=== PATIENT | male | born 1950 | race Caucasian/White ===

== ENCOUNTER 2017-08-30 23:59 | Emergency (ER) | payer OTHER ==
[~2017-08-30] VITALS: Ht 180.3 cm; Wt 95.0 kg
[2017-08-31 11:03] VITALS: BP 118/55
== END 2017-08-31 11:04 ==
LOC: EDBD 23:59 → EME 23:59
PROC: 0D20XUZ Change Feeding Device in Upper Intestinal Tract, External Approach (ICD-10-PCS; principal; 2017-08-30)
DX: K94.23 Gastrostomy malfunction (principal)
CPT/HCPCS: 74018; 76000; 99281; 99285; J1630; J2060

== ENCOUNTER 2017-09-03 17:37 | Inpatient (IN) | payer OTHER ==
[~2017-09-03] VITALS: Ht 177.8 cm; Wt 106.0 kg
[2017-09-03 18:37] LABS: BASOPHIL (%) 0.9 % (0-1); BASOPHIL COUNT 0.1 K/uL (0-0.1); EOSINOPHIL (%) 4.8 % (0-5); EOSINOPHIL COUNT 0.6 K/uL (0-0.3); HEMATOCRIT 30.6 % (38.0-50.0); HEMOGLOBIN 9.9 G/DL (12.5-16.6); IMMATURE GRANULOCYTE (%) 1.7 % (0.0-0.7); LYMPHOCYTE (%) 9.9 % (15-42); LYMPHOCYTE COUNT 1.2 K/uL (1.0-2.8); MCH 28.9 PG (29.0-34.0); MCHC 32.4 G/DL (30.0-36.0); MCV 89.2 FL (86-99); MONOCYTE (%) 12.4 % (3-12); MONOCYTE COUNT 1.5 K/uL (0-0.8); NEUTROPHIL (%) 70.3 % (45-76); NEUTROPHIL COUNT 8.3 K/uL (1.8-6.4); PLATELET COUNT 359 K/uL (156-360); RBC DIS.WIDTH-CV 17.2 % (11.8-14.6); RBC DIS.WIDTH-SD 56.3 % (39-53); RED BLOOD COUNT 3.43 M/uL (4.00-5.50); WHITE BLOOD COUNT 11.8 K/uL (4.1-10.2)
[2017-09-03 18:49] LABS: ALBUMIN 3.1 g/dL (3.2-4.8); CHLORIDE 106 mEq/L (99-109); POTASSIUM 4.6 mEq/L (3.7-5.4); SODIUM 138 mEq/L (136-147)
[2017-09-03 18:51] LABS: GLUCOSE 129 mg/dL (70-99); TOTAL PROTEIN 7.4 g/dL (6.4-8.3)
[2017-09-03 18:53] LABS: TOTAL BILIRUBIN 0.3 mg/dL (0.0-1.0)
[2017-09-03 18:55] LABS: ALKALINE PHOSPHATASE 73 IU/L (3-129); GFR ESTIMATE (CALCULATED) 36 mL/min/ (58.99-99999)
[2017-09-03 18:56] LABS: UREA NITROGEN (BUN) 27 mg/dL (9-23)
[2017-09-03 18:57] LABS: AST (GOT) 21 IU/L (2-34)
[2017-09-03 18:58] LABS: ALT (GPT) 17 IU/L (3-49)
[2017-09-03 18:59] LABS: TROP-I INTERPRETATION NEGATIVE; TROPONIN-I < 0.01 ng/mL (0.0-0.30)
[2017-09-03 19:42] LABS: APPEARANCE SL.HAZY ((CLEAR)); BILIRUBIN NEGATIVE; BLOOD NEGATIVE; COLOR YELLOW ((YELLOW)); GLUCOSE (STRIP) 50; KETONES NEGATIVE; LEUKOCYTES NEGATIVE; NITRITE NEGATIVE; PROTEIN (STRIP) 100; SPECIFIC GRAVITY 1.014 (1.000-1.030); UROBILINOGEN 0.2 MG/DL (0.2-1.0)
[2017-09-03 19:52] LABS: BACTERIA RARE /HPF; EPITHELIAL CELLS RARE /HPF; HYALINE CASTS 0-5 /LPF; MUCUS TRACE /LPF; RED BLOOD CELLS 0-5 /HPF (0-5); UCUL ADDED? YES
[2017-09-04] MEDS ORDERED: CERTAVITE WITH1 EAC1 GT (03:25)
[2017-09-04] MEDS ORDERED: CIPRO I.V.400 MG/200 IV (03:26)
[2017-09-04] MEDS ORDERED: LABETALOL HCL100 MG GT (03:27)
[2017-09-04] MEDS ORDERED: ACID CONTROLLER20 MG GT (03:27)
[2017-09-04] MEDS ORDERED: VITAMIN D31000 UNI1 GT (03:28)
[2017-09-04] MEDS ORDERED: EFFEXOR75 MG GT (03:29)
[2017-09-04] MEDS ORDERED: NOVOLOG 10100 UNITS/ SQ (03:30)
[2017-09-04] MEDS ORDERED: DIFLUCAN200 MG/100 IV (03:31)
[2017-09-04] MEDS ORDERED: RISPERDAL2 MG GT (03:32)
[2017-09-04] MEDS ORDERED: TOBRAMYCIN40 MG/1 M1 IV (03:33)
[2017-09-04] MEDS ORDERED: LOVENOX30 MG/0.3 SQ (03:36)
[2017-09-04] MEDS ORDERED: XANAX0.25 MG GT (03:37)
[2017-09-04] MEDS ORDERED: RISPERDAL3 MG GT (03:44)
[2017-09-04] MEDS ORDERED: HALDOL5 MG GT (03:46)
[2017-09-04] MEDS ORDERED: TYLENOL REGULA325 MG GT (03:48)
[2017-09-04] MEDS ORDERED: ROXICODONE5 MG GT (03:48)
[2017-09-04 06:24] LABS: BASOPHIL (%) 1.1 % (0-1); BASOPHIL COUNT 0.1 K/uL (0-0.1); EOSINOPHIL (%) 4.6 % (0-5); EOSINOPHIL COUNT 0.5 K/uL (0-0.3); HEMATOCRIT 31.3 % (38.0-50.0); HEMOGLOBIN 9.7 G/DL (12.5-16.6); IMMATURE GRANULOCYTE (%) 1.9 % (0.0-0.7); LYMPHOCYTE (%) 10.6 % (15-42); LYMPHOCYTE COUNT 1.1 K/uL (1.0-2.8); MCH 28.1 PG (29.0-34.0); MCV 90.7 FL (86-99); MONOCYTE (%) 12.3 % (3-12); MONOCYTE COUNT 1.3 K/uL (0-0.8); NEUTROPHIL (%) 69.5 % (45-76); NEUTROPHIL COUNT 7.5 K/uL (1.8-6.4); PLATELET COUNT 355 K/uL (156-360); RBC DIS.WIDTH-CV 17.1 % (11.8-14.6); RBC DIS.WIDTH-SD 56.8 % (39-53); RED BLOOD COUNT 3.45 M/uL (4.00-5.50); WHITE BLOOD COUNT 10.8 K/uL (4.1-10.2)
[2017-09-04 06:27] VITALS: BP 138/67
[2017-09-04 06:48] LABS: CHLORIDE 106 MEQ/L (99-109); GFR ESTIMATE (CALCULATED) 36 mL/min/ (58.99-99999); GLUCOSE 121 mg/dL (70-99); POTASSIUM 4.4 MEQ/L (3.7-5.4); SODIUM 140 MEQ/L (136-147); TOBRAMYCIN (TROUGH) 1.2 MCG/ML (0-1.0); UREA NITROGEN (BUN) 27 mg/dL (9-23)
[2017-09-04 06:49] LABS: INTACT PARATHYROID HORMONE 8 pg/mL (10-69)
[2017-09-04 07:59] VITALS: BP 140/75
[2017-09-04 11:55] VITALS: BP 115/59
[2017-09-04] MEDS ORDERED: CERTAVITE WITH1 EAC1 ET (13:53)
[2017-09-04] MEDS ORDERED: OXYCODONE HCL5 MG PO (14:48)
[2017-09-04 17:04] VITALS: BP 151/72
[2017-09-05 00:01] VITALS: BP 140/72
[2017-09-05 04:01] VITALS: BP 128/67
[2017-09-05 06:35] LABS: HEMATOCRIT 31.6 % (38.0-50.0); HEMOGLOBIN 9.7 G/DL (12.5-16.6); MCH 27.9 PG (29.0-34.0); MCHC 30.7 G/DL (30.0-36.0); MCV 90.8 FL (86-99); PLATELET COUNT 336 K/uL (156-360); RBC DIS.WIDTH-CV 16.9 % (11.8-14.6); RBC DIS.WIDTH-SD 56.6 % (39-53); RED BLOOD COUNT 3.48 M/uL (4.00-5.50); WHITE BLOOD COUNT 10.9 K/uL (4.1-10.2)
[2017-09-05 07:12] LABS: ALBUMIN 2.9 G/DL (3.2-4.8); ALKALINE PHOSPHATASE 66 IU/L (3-129); ALT (GPT) 16 IU/L (3-49); AST (GOT) 24 IU/L (2-34); CHLORIDE 106 MEQ/L (99-109); CREATININE 1.8 MG/DL (0.6-1.3); GFR ESTIMATE (CALCULATED) 40 mL/min/ (58.99-99999); GLUCOSE 139 mg/dL (70-99); POTASSIUM 3.9 MEQ/L (3.7-5.4); SODIUM 140 MEQ/L (136-147); TOTAL BILIRUBIN 0.4 MG/DL (0.0-1.0); TOTAL PROTEIN 6.5 G/DL (6.4-8.3); UREA NITROGEN (BUN) 27 mg/dL (9-23)
[2017-09-05 07:13] LABS: TOBRAMYCIN (TROUGH) < 0.6 MCG/ML (0-1.0)
[2017-09-05 12:03] VITALS: BP 139/88
[2017-09-05 19:45] VITALS: BP 108/58
[2017-09-06 03:11] VITALS: BP 106/58
[2017-09-06 07:12] VITALS: BP 151/80
[2017-09-06 11:44] VITALS: BP 133/63
[2017-09-06 16:17] VITALS: BP 108/60
[2017-09-06 20:20] VITALS: BP 140/84
[2017-09-07] VITALS (7 sets, daily range): BP systolic 109–133; BP diastolic 55–85
[2017-09-08 04:15] VITALS: BP 136/60
[2017-09-08 08:01] VITALS: BP 126/81
[2017-09-08 12:33] VITALS: BP 133/64
[2017-09-08 16:12] VITALS: BP 146/70
[2017-09-08 19:31] VITALS: BP 135/70
[2017-09-09 03:26] VITALS: BP 133/70
[2017-09-09 07:31] VITALS: BP 130/62
[2017-09-09 12:05] VITALS: BP 114/55
[2017-09-09 15:13] VITALS: BP 130/63
[2017-09-09 19:42] VITALS: BP 120/70
[2017-09-10] VITALS (7 sets, daily range): BP systolic 112–136; BP diastolic 59–81
[2017-09-10 08:00] LABS: BASOPHIL (%) 0.9 % (0-1); BASOPHIL COUNT 0.1 K/uL (0-0.1); EOSINOPHIL (%) 5.3 % (0-5); EOSINOPHIL COUNT 0.6 K/uL (0-0.3); HEMOGLOBIN 8.8 G/DL (12.5-16.6); IMMATURE GRANULOCYTE (%) 2.4 % (0.0-0.7); LYMPHOCYTE (%) 9.7 % (15-42); LYMPHOCYTE COUNT 1.1 K/uL (1.0-2.8); MCH 28.3 PG (29.0-34.0); MCHC 30.3 G/DL (30.0-36.0); MCV 93.2 FL (86-99); MONOCYTE (%) 12.3 % (3-12); MONOCYTE COUNT 1.4 K/uL (0-0.8); NEUTROPHIL (%) 69.4 % (45-76); NEUTROPHIL COUNT 7.6 K/uL (1.8-6.4); PLATELET COUNT 250 K/uL (156-360); RBC DIS.WIDTH-SD 55.3 % (39-53); RED BLOOD COUNT 3.11 M/uL (4.00-5.50)
[2017-09-10 08:34] LABS: ALBUMIN 2.7 G/DL (3.2-4.8); ALKALINE PHOSPHATASE 67 IU/L (3-129); ALT (GPT) 12 IU/L (3-49); AST (GOT) 14 IU/L (2-34); CHLORIDE 104 MEQ/L (99-109); CREATININE 1.4 MG/DL (0.6-1.3); DIRECT BILIRUBIN 0.1 mg/dL (0.0-0.3); GFR ESTIMATE (CALCULATED) 54 mL/min/ (58.99-99999); GLUCOSE 204 mg/dL (70-99); POTASSIUM 4.1 MEQ/L (3.7-5.4); SODIUM 138 MEQ/L (136-147); UREA NITROGEN (BUN) 25 mg/dL (9-23)
[2017-09-10 08:35] LABS: TOTAL BILIRUBIN 0.3 MG/DL (0.0-1.0)
[2017-09-11 04:33] VITALS: BP 100/62
[2017-09-11 08:10] VITALS: BP 122/64
[2017-09-11 13:21] VITALS: BP 143/71
[2017-09-11 16:59] VITALS: BP 95/52
[2017-09-11 19:20] VITALS: BP 130/60
[2017-09-11 23:33] VITALS: BP 165/79
[2017-09-12 03:55] VITALS: BP 133/67
[2017-09-12 07:59] VITALS: BP 133/67
[2017-09-12 11:46] VITALS: BP 124/72
[2017-09-12 16:00] VITALS: BP 126/66
[2017-09-13 05:24] VITALS: BP 143/61
[2017-09-13 08:28] VITALS: BP 126/62
[2017-09-13 11:31] VITALS: BP 126/63
[2017-09-13 11:34] LABS: BASOPHIL COUNT 0.1 K/uL (0-0.1); EOSINOPHIL (%) 3.4 % (0-5); EOSINOPHIL COUNT 0.5 K/uL (0-0.3); HEMOGLOBIN 9.9 G/DL (12.5-16.6); IMMATURE GRANULOCYTE (%) 4.5 % (0.0-0.7); LYMPHOCYTE (%) 7.5 % (15-42); MCH 27.8 PG (29.0-34.0); MCHC 30.9 G/DL (30.0-36.0); MCV 89.9 FL (86-99); MONOCYTE (%) 9.7 % (3-12); MONOCYTE COUNT 1.3 K/uL (0-0.8); NEUTROPHIL (%) 73.9 % (45-76); NEUTROPHIL COUNT 9.7 K/uL (1.8-6.4); RBC DIS.WIDTH-CV 15.4 % (11.8-14.6); RBC DIS.WIDTH-SD 51.1 % (39-53); RED BLOOD COUNT 3.56 M/uL (4.00-5.50); WHITE BLOOD COUNT 13.1 K/uL (4.1-10.2)
[2017-09-13 11:37] LABS: PLATELET COUNT 334 K/uL (156-360)
[2017-09-13 11:56] LABS: CHLORIDE 105 MEQ/L (99-109); CREATININE 1.3 MG/DL (0.6-1.3); GFR ESTIMATE (CALCULATED) 59 mL/min/ (58.99-99999); GLUCOSE 137 mg/dL (70-99); POTASSIUM 3.9 MEQ/L (3.7-5.4); SODIUM 140 MEQ/L (136-147); UREA NITROGEN (BUN) 20 mg/dL (9-23)
[2017-09-13 15:47] VITALS: BP 128/65
[2017-09-13 20:23] VITALS: BP 130/72
[2017-09-14 00:07] VITALS: BP 137/64
[2017-09-14 04:44] VITALS: BP 125/62
[2017-09-14 07:39] VITALS: BP 135/66
[2017-09-14 11:19] VITALS: BP 127/59
[2017-09-14 15:46] VITALS: BP 130/80
[2017-09-14 20:39] VITALS: BP 130/66
[2017-09-15 04:39] VITALS: BP 130/80
[2017-09-15 11:52] VITALS: BP 130/68
[2017-09-15 16:02] VITALS: BP 132/69
[2017-09-15 19:48] VITALS: BP 130/68
[2017-09-16] VITALS: BP 132/68
[2017-09-16 04:17] VITALS: BP 132/68
[2017-09-16 08:16] VITALS: BP 152/72
[2017-09-16 13:25] VITALS: BP 154/67
[2017-09-16 17:49] VITALS: BP 142/79
[2017-09-16 20:07] VITALS: BP 142/65
[2017-09-17 00:45] VITALS: BP 140/83
[2017-09-17 03:49] VITALS: BP 133/70
[2017-09-17 05:43] LABS: HEMATOCRIT 29.7 % (38.0-50.0); HEMOGLOBIN 9.3 G/DL (12.5-16.6); MCH 28.2 PG (29.0-34.0); MCHC 31.3 G/DL (30.0-36.0); PLATELET COUNT 345 K/uL (156-360); RBC DIS.WIDTH-CV 15.4 % (11.8-14.6); RBC DIS.WIDTH-SD 51.1 % (39-53); WHITE BLOOD COUNT 13.5 K/uL (4.1-10.2)
[2017-09-17 06:06] LABS: CHLORIDE 106 MEQ/L (99-109); CREATININE 1.1 MG/DL (0.6-1.3); GFR ESTIMATE (CALCULATED) > 59 mL/min/ (58.99-99999); GLUCOSE 158 mg/dL (70-99); POTASSIUM 4.3 MEQ/L (3.7-5.4); SODIUM 140 MEQ/L (136-147); UREA NITROGEN (BUN) 27 mg/dL (9-23)
[2017-09-17 08:55] VITALS: BP 120/70
[2017-09-17 09:29] LABS: IMM.RETIC FRACTION 30.5 % (3-19); RETIC HGB EQUIVALENT 28.1 (28-36); RETICULOCYTE COUNT 2.5 % (0.5-1.8)
[2017-09-17 10:59] LABS: FERRITIN 436 NG/ML (22-322); IRON 25 MCG/DL (35-150); TRANSFERRIN (TIBC) 156.6 mg/dL (215-380); TRANSFERRIN SATUR. 16 % (20-55)
[2017-09-17 11:05] LABS: FOLIC ACID (FOLATE) 8.9 NG/ML (5.0-22.0)
[2017-09-17 11:53] VITALS: BP 120/74
[2017-09-17 20:58] VITALS: BP 133/70
[2017-09-18 05:27] LABS: HEMATOCRIT 31.6 % (38.0-50.0); HEMOGLOBIN 9.9 G/DL (12.5-16.6); MCH 28.2 PG (29.0-34.0); MCHC 31.3 G/DL (30.0-36.0); PLATELET COUNT 383 K/uL (156-360); RBC DIS.WIDTH-CV 15.5 % (11.8-14.6); RBC DIS.WIDTH-SD 50.8 % (39-53); RED BLOOD COUNT 3.51 M/uL (4.00-5.50); WHITE BLOOD COUNT 14.6 K/uL (4.1-10.2)
[2017-09-18 05:50] LABS: ABS NEUTROPHIL COUNT 10.6; BAND NEUTROPHILS 1.7 % (0-8.0); BURR CELLS 2+; EOSINOPHIL ABS CT 0.6; EOSINOPHILS 4.4 % (0-5.0); LYMPHOCYTES 7.9 % (15.0-45.0); MONOCYTES 9.6 % (0-9.0); MYELOCYTES 5.3 %; PLAT.SUFFICIENCY ADEQUATE; POLYCHROMASIA 1+; SEG.NEUTROPHILS 71.1 % (46.0-76.0)
[2017-09-18 05:51] LABS: ALBUMIN 2.7 G/DL (3.2-4.8); ALKALINE PHOSPHATASE 84 IU/L (3-129); ALT (GPT) 18 IU/L (3-49); AST (GOT) 20 IU/L (2-34); CHLORIDE 102 MEQ/L (99-109); CREATININE 1.1 MG/DL (0.6-1.3); GFR ESTIMATE (CALCULATED) > 59 mL/min/ (58.99-99999); GLUCOSE 147 mg/dL (70-99); POTASSIUM 4.8 MEQ/L (3.7-5.4); SODIUM 139 MEQ/L (136-147); TOTAL BILIRUBIN 0.3 MG/DL (0.0-1.0); TOTAL PROTEIN 6.4 G/DL (6.4-8.3); UREA NITROGEN (BUN) 27 mg/dL (9-23)
[2017-09-18 08:34] VITALS: BP 149/71
[2017-09-18 12:19] VITALS: BP 124/68
[2017-09-18 17:48] VITALS: BP 120/64
[2017-09-18 23:32] VITALS: BP 138/78
[2017-09-19 04:25] VITALS: BP 124/65
[2017-09-19 07:59] VITALS: BP 140/70
[2017-09-19 10:03] LABS: TREPONEMA ANTIBODY NEGATIVE (NEGATIVE)
[2017-09-19 11:00] VITALS: BP 130/70
[2017-09-19 19:29] VITALS: BP 122/68
[2017-09-19 23:15] VITALS: BP 128/64
[2017-09-20 04:00] VITALS: BP 122/68
[2017-09-20 08:12] VITALS: BP 140/72
[2017-09-20 11:54] VITALS: BP 118/82
[2017-09-20 13:09] LABS: HEMATOCRIT 32.4 % (38.0-50.0); HEMOGLOBIN 9.9 G/DL (12.5-16.6); MCH 27.5 PG (29.0-34.0); MCHC 30.6 G/DL (30.0-36.0); PLATELET COUNT 375 K/uL (156-360); RBC DIS.WIDTH-CV 15.3 % (11.8-14.6); RBC DIS.WIDTH-SD 50.8 % (39-53); WHITE BLOOD COUNT 13.4 K/uL (4.1-10.2)
[2017-09-20 13:23] LABS: CHLORIDE 105 MEQ/L (99-109); CREATININE 1.1 MG/DL (0.6-1.3); GFR ESTIMATE (CALCULATED) > 59 mL/min/ (58.99-99999); GLUCOSE 168 mg/dL (70-99); SODIUM 141 MEQ/L (136-147); UREA NITROGEN (BUN) 20 mg/dL (9-23)
[2017-09-20 13:29] LABS: ANISOCYTOSIS 1+; BAND NEUTROPHILS 1.7 % (0-8.0); EOSINOPHIL ABS CT 1.4; EOSINOPHILS 10.5 % (0-5.0); LYMPHOCYTES 4.4 % (15.0-45.0); MACROCYTES 1+; METAMYELOCYTES 0.9 %; MICROCYTOSIS 1+; MONOCYTES 7.9 % (0-9.0); MYELOCYTES 1.8 %; PLAT.SUFFICIENCY INCREASED; PLATELET CLUMPS PRESENT - PLATELET COUNT APPEARS INCREASED; POLYCHROMASIA 1+; SEG.NEUTROPHILS 72.8 % (46.0-76.0)
[2017-09-20 15:06] LABS: THYROTROPIN (TSH) 3.9 MIU/L (0.4-5.5)
[2017-09-20 16:02] VITALS: BP 118/70
[2017-09-20 19:35] VITALS: BP 140/78
[2017-09-20 23:48] VITALS: BP 135/76
[2017-09-21 07:08] VITALS: BP 118/72
[2017-09-21 08:22] VITALS: BP 120/78
[2017-09-21 09:58] LABS: ALBUMIN 2.9 G/DL (3.2-4.8); ALKALINE PHOSPHATASE 94 IU/L (3-129); ALT (GPT) 18 IU/L (3-49); AST (GOT) 24 IU/L (2-34); CHLORIDE 105 MEQ/L (99-109); CREATININE 1.2 MG/DL (0.6-1.3); GFR ESTIMATE (CALCULATED) > 59 mL/min/ (58.99-99999); GLUCOSE 167 mg/dL (70-99); POTASSIUM 4.4 MEQ/L (3.7-5.4); SODIUM 142 MEQ/L (136-147); TOTAL BILIRUBIN 0.3 MG/DL (0.0-1.0); TOTAL PROTEIN 7.1 G/DL (6.4-8.3); UREA NITROGEN (BUN) 18 mg/dL (9-23)
[2017-09-21 10:59] LABS: BASOPHIL (%) 0.8 % (0-1); BASOPHIL COUNT 0.1 K/uL (0-0.1); EOSINOPHIL (%) 3.6 % (0-5); EOSINOPHIL COUNT 0.5 K/uL (0-0.3); HEMATOCRIT 30.7 % (38.0-50.0); HEMOGLOBIN 9.6 G/DL (12.5-16.6); IMMATURE GRANULOCYTE (%) 3.9 % (0.0-0.7); LYMPHOCYTE (%) 9.2 % (15-42); LYMPHOCYTE COUNT 1.3 K/uL (1.0-2.8); MCH 28.4 PG (29.0-34.0); MCHC 31.3 G/DL (30.0-36.0); MCV 90.8 FL (86-99); MONOCYTE (%) 8.4 % (3-12); MONOCYTE COUNT 1.2 K/uL (0-0.8); NEUTROPHIL (%) 74.1 % (45-76); NEUTROPHIL COUNT 10.6 K/uL (1.8-6.4); PLATELET COUNT 368 K/uL (156-360); RBC DIS.WIDTH-CV 15.6 % (11.8-14.6); RBC DIS.WIDTH-SD 51.8 % (39-53); RED BLOOD COUNT 3.38 M/uL (4.00-5.50); WHITE BLOOD COUNT 14.3 K/uL (4.1-10.2)
[2017-09-21] MEDS ORDERED: DOCU LIQUI50 MG/5 ML GT (11:15)
[2017-09-21] MEDS ORDERED: HALDOL5 MG GT (11:15)
[2017-09-21] MEDS ORDERED: ZYVOX20 MG/1 ML GT (11:15)
[2017-09-21] MEDS ORDERED: COGENTIN0.5 MG GT (11:15)
[2017-09-21] MEDS ORDERED: PROMETHAZINE HC25 M1 GT (11:15)
[2017-09-21] MEDS ORDERED: RISPERDAL2 MG GT (11:15)
[2017-09-21] MEDS ORDERED: EFFEXOR50 MG GT (11:15)
[2017-09-21] MEDS ORDERED: MIRTAZAPINE15 MG GT (11:15)
[2017-09-21] MEDS ORDERED: PREVACID SOLUTA30 MG GT (11:15)
[2017-09-21 12:29] VITALS: BP 132/72
== END 2017-09-21 14:50 | disposition designated cancer center or children's hospital (05) | DRG 40 ==
LOC: EME 17:37 → 4EAST 09-04 00:50 → EDOF 09-04 00:50 → ENRESERV 09-04 01:32 → 4EAST 09-04 04:49 → 3EAST 09-04 17:42 → 4EAST 09-04 17:49 → ENRESERV 09-07 15:24 → 3EAST 09-07 17:40
PROVIDERS: Emergency Medicine; Family Medicine; Hospitalist; Internal Medicine; Physician Assistant; Surgery
PROC: 0JB70ZZ Excision of Back Subcutaneous Tissue and Fascia, Open Approach (ICD-10-PCS; principal; 2017-09-10)
PROC: 0FP4X0Z Removal of Drainage Device from Gallbladder, External Approach (ICD-10-PCS; 2017-09-12)
PROC: 0JD80ZZ Extraction of Abdomen Subcutaneous Tissue and Fascia, Open Approach (ICD-10-PCS; 2017-09-15)
DX: S06.379A Contusion, laceration, and hemorrhage of cerebellum with loss of consciousness of unspecified duration, initial encounter (principal); S06.2X9A Diffuse traumatic brain injury with loss of consciousness of unspecified duration, initial encounter; W18.30XA Fall on same level, unspecified, initial encounter; Y92.239 Unspecified place in hospital as the place of occurrence of the external cause; N17.9 Acute kidney failure, unspecified; G93.41 Metabolic encephalopathy; L89.153 Pressure ulcer of sacral region, stage 3; T81.31XA Disruption of external operation (surgical) wound, not elsewhere classified, initial encounter; T81.4XXA Infection following a procedure, initial encounter; T85.528A Displacement of other gastrointestinal prosthetic devices, implants and grafts, initial encounter; T81.89XA Other complications of procedures, not elsewhere classified, initial encounter; K65.8 Other peritonitis; K94.23 Gastrostomy malfunction; F05 Delirium due to known physiological condition; C18.9 Malignant neoplasm of colon, unspecified; C77.2 Secondary and unspecified malignant neoplasm of intra-abdominal lymph nodes; D69.6 Thrombocytopenia, unspecified; E83.52 Hypercalcemia; F32.3 Major depressive disorder, single episode, severe with psychotic features; E11.22 Type 2 diabetes mellitus with diabetic chronic kidney disease; J44.9 Chronic obstructive pulmonary disease, unspecified; I48.91 Unspecified atrial fibrillation; I10 Essential (primary) hypertension; K22.2 Esophageal obstruction; E66.01 Morbid (severe) obesity due to excess calories; Z68.41 Body mass index [BMI] 40.0-44.9, adult; D50.9 Iron deficiency anemia, unspecified; E78.5 Hyperlipidemia, unspecified; K22.70 Barrett's esophagus without dysplasia; Z75.1 Person awaiting admission to adequate facility elsewhere; Z22.322 Carrier or suspected carrier of Methicillin resistant Staphylococcus aureus; Z16.24 Resistance to multiple antibiotics; Z22.39 Carrier of other specified bacterial diseases; Z91.81 History of falling; Z91.5 Personal history of self-harm; Z87.19 Personal history of other diseases of the digestive system; Z90.49 Acquired absence of other specified parts of digestive tract
CPT/HCPCS: 47537; 70450; 70551; 71045; 72125; 72170; 74018; 74230; 76705; 80048; 80053; 80076; 80200; 81003; 82024 90; 82140; 82533 91; 82607; 82728; 82746; 82948; 83540; 83605; 83735; 83970; 84443; 84466; 84484; 85025; 85025 91; 85027; 85046; 86780; 87070; 87075; 87077; 87086 GA; 87147; 87186; 87205; 87493; 87641; 92507 GN; 92523 GN; 92611 GN; 93005; 95819; 97530 GP; 99281; 99285; A6214; A6260; C1769; G0515 GN; G8996 GN CI; G8997 GN CI; G8998 GN CI; J0744; J1644; J1815; J3260; J3486; J7050; J7120; Q0169